=== PATIENT | male | born 1950 | race Caucasian/White ===

== ENCOUNTER 2024-07-28 11:38 | Emergency (ER) | payer MEDICARE, MEDICAID ==
[~2024-07-28] VITALS: Ht 170.2 cm; Wt 85.0 kg
[2024-07-28 11:46] VITALS: O2SAT 98
[2024-07-28 11:52] VITALS: BP 152/80; PULSE 63; RESP 18; TEMP 36.7; O2SAT 97
== END 2024-07-28 15:13 | disposition home or self-care (01) ==
LOC: ER 11:38
DX: I10 Essential (primary) hypertension (principal); Z79.899 Other long term (current) drug therapy
CPT/HCPCS: 99281